=== PATIENT | male | born 1985 | race Two or more races ===

== ENCOUNTER 2024-11-22 16:30 | Emergency (ER) | payer OTHER ==
[~2024-11-22] VITALS: Ht 170.2 cm; Wt 70.3 kg
[2024-11-22] MEDS ORDERED: NALOXONE HCL 0.4 MG/ML AMPUL ONE (17:21)
[2024-11-22] MEDS: NALOXONE HCL 0.4 MG/ML AMPUL IV ONE (17:36)
[2024-11-22 17:43] LABS: PLATELET COUNT (AUTO) 267 K/uL (150-450); RED BLOOD CELL COUNT(AUTO) 4.15 MIL/uL (4.5-6.0); RED CELL DISTRIBUTION WIDTH 14.3 % (11.5-15.0); WHITE BLOOD COUNT (AUTO) 12.6 K/uL (4.3-11.0)
[2024-11-22 17:54] LABS: CALCIUM, SERUM 8.6 mg/dL (8.5-10.1); CREATININE 1.1 mg/dL (0.6-1.3); SODIUM SERUM 140 mmol/L (136-145); UREA NITROGEN, BLOOD 9 mg/dL (7-18)
[2024-11-22 18:05] LABS: ASPARTATE AMINOTRANSFERASE 18 U/L (15-37); TOTAL PROTEIN, SERUM 7.5 g/dL (6.4-8.2)
[2024-11-22 18:08] LABS: ALCOHOL, BLOOD < 3 mg/dL (0-10)
[2024-11-22 18:27] LABS: AMPHETAMINE, URINE NEGATIVE (NEGATIVE); BARBITURATE, URINE NEGATIVE (NEGATIVE); BENZODIAZEPINE, URINE NEGATIVE (NEGATIVE); CANNABINOID, URINE POSITIVE (NEGATIVE); COCCAINE, URINE NEGATIVE (NEGATIVE); OPIATE, URINE NEGATIVE (NEGATIVE)
[2024-11-22 18:32] LABS: APPEARANCE,URINE CLEAR (CLEAR); BLOOD, URINE NEGATIVE Ery/uL (NEGATIVE); LEUKOCYTE ESTERASE ,URINE NEGATIVE (NEGATIVE); NITRITE, URINE NEGATIVE (NEGATIVE); UGLUCOSE NEGATIVE (NEGATIVE)
[2024-11-22 20:41] VITALS: BP 115/72; TEMP 97.7; O2SAT 99
[2024-11-23 12:19] LABS: ABG BASE EXCESS -1.8 mmol/L (-2.0-3.0); ABG OXYGEN SATURATION 97.3 % (94.0-98.0); ABG PCO2 45.1 mmHg (35.0-48.0); ABG PH 7.346 (7.350-7.450); ABG PO2 109.9 mmHg (83.0-108.0); ABG TOTAL HEMOGLOBIN 14.0 G/dL (13.5-17.5); FLOW, BLOOD GAS 3.00 L/min (0.00-30.00); FRACTIONATED INSPIRED OXYGEN 32.0 %; SITE, ABG RIGHT RADIAL
== END 2024-11-22 20:42 | disposition home or self-care (01) ==
LOC: ER 16:35
DX: T40.2X1A Poisoning by other opioids, accidental (unintentional), initial encounter (principal); Z20.822 Contact with and (suspected) exposure to COVID-19; Y92.89 Other specified places as the place of occurrence of the external cause
CPT/HCPCS: 99285; 96374; 93005; 85025; 80048; 80076; 81003; 36415; 87426; 80143; 80320; 80307; J2310; G0480